=== PATIENT | female | born 1950 | race Caucasian/White ===

== ENCOUNTER 2016-10-28 14:50 | Outpatient (RCR) | payer OTHER, MEDICARE ==
[~2016-10-28 14:50] MED LIST: ACHD5005 PO; ALPR.25T PO; ASP81TEC PO; FRNCD3C PO; LISI20TA PO; NAPR-243 PO; OMEP20CA6 PO; OXYC-12 PO; PNT40TEC PO; SIMV20TA3 PO; SMTR50T PO; TPR25T PO; TRIA1TAB3 PO
== END 2016-10-29 13:30 | disposition home or self-care (01) ==
PROVIDERS: ATTEND Orthopaedic Surgery
DX: Z47.1 Aftercare following joint replacement surgery (principal); Z96.651 Presence of right artificial knee joint

== ENCOUNTER → 2017-02-25 | Outpatient (CLI) | payer MEDICARE, OTHER ==
[2017-02-25 09:51] LABS: ALANINE AMINOTRANSFERASE 21 U/L (0-55); ALBUMIN 3.9 GM/DL (3.2-4.5); ANION GAP 9 MMOL/L (5-14); ASPARTATE AMINO TRANSFERASE 17 U/L (5-34); BILIRUBIN,TOTAL 0.5 MG/DL (0.1-1.0); BLOOD UREA NITROGEN 14 MG/DL (7-18); BUN/CREATININE RATIO 19 (0-20); CALCIUM 8.9 MG/DL (8.5-10.1); CARBON DIOXIDE 26 MMOL/L (21-32); CHLORIDE 108 MMOL/L (98-107); CHOLESTEROL 190 MG/DL (< 200); CREATININE SERUM 0.73 MG/DL (0.60-1.30); DIRECT LDL 118 MG/DL (1-129); GFR ESTIMATED > 60; GLUCOSE 91 MG/DL (70-105); HEMOLYSIS 7 (-100-29); ICTERUS 0.8 (-100-1.9); LIPEMIA 1 (-100-49); POTASSIUM 3.7 MMOL/L (3.6-5.0); SODIUM 143 MMOL/L (135-145); TOTAL PROTEIN 6.2 GM/DL (6.4-8.2); TRIGLYCERIDES 102 MG/DL (<150); VLDL CHOLESTEROL 20 MG/DL (5-40)
[2017-02-25 10:11] LABS: THYROID STIMULATING HORMONE 1.75 UIU/ML (0.35-4.94)
== END ==
LOC: LAB 08:58
PROVIDERS: ATTEND Internal Medicine
DX: E78.1 Pure hyperglyceridemia (principal); E78.00 Pure hypercholesterolemia, unspecified; R73.9 Hyperglycemia, unspecified
CPT/HCPCS: 36415; 80053; 80061; 83036; 84443

== ENCOUNTER → 2017-03-12 | Outpatient (CLI) | payer MEDICARE, OTHER ==
--- NOTE | 2017-03-12 15:20 | Diagnostic Imaging Report ---
EXAMINATION: Right breast ultrasound. INDICATION: Asymmetry in the central aspect of the right CC projection, probably inferiorly located in the right breast. TECHNIQUE: All four quadrants and the retroareolar region were examined on this study. FINDINGS: There are scattered benign-appearing calcifications seen correlating with mammographic findings noted. When compared to ultrasound from 08/08/2006, the previously seen lymph node at the 7:00 zone has resolved. The lymph node was felt to correlate with the asymmetry; however, the discrepancy persisting on mammography and resolving on ultrasound is suggestive of other etiology of the asymmetry. IMPRESSION: Essentially negative ultrasound. The persistent asymmetry in the central aspect of the right CC projection with suggestive correlate inferiorly in the inferior aspect of the right breast is of uncertain etiology. MRI evaluation is recommended to rule out an underlying lesion. If the MRI could not be obtained, then six-month followup mammogram would be recommended. ACR BI-RADS Category 3: Probably benign findings. Result letter will be mailed to the patient. Note: At least 10% of breast cancer is not imaged by mammography. Dictated by: Dictated on workstation # [id number]
--- NOTE | 2017-03-12 15:25 | Diagnostic Imaging Report ---
EXAMINATION: Bilateral diagnostic mammogram with tomosynthesis. The current study was also evaluated with a Computer Aided Detection (CAD) system. INDICATION: Followup focal asymmetry in the central lower aspect of the right breast. COMPARISON: 04/12/2016. FINDINGS: There is a focal asymmetry measuring about 1 cm in the central lower aspect of the right breast. This is confirmed with persistent oval asymmetry seen on the tomographic images in the CC projection, image 10 of 67, and appears to correlate with an asymmetry that is less prominent on a tomographic image in the right MLO view, image 13 of 74. This is less prominent on the true lateral view and is not significantly apparent. Otherwise, the breasts appears to have scattered fibroglandular densities and benign-appearing calcifications. IMPRESSION: Persistent focal asymmetry in the lower aspect of the right breast. An ultrasound evaluation is pending. ACR BI-RADS Category 0: Incomplete. (Needs additional imaging evaluation). Result letter will be mailed to the patient. Note: At least 10% of breast cancer is not imaged by mammography. Dictated by: Dictated on workstation # [id number]
== END ==
LOC: RAD 13:50
PROVIDERS: ATTEND Internal Medicine
DX: N64.89 Other specified disorders of breast (principal)
CPT/HCPCS: 76641; 77066

== ENCOUNTER → 2017-04-01 | Outpatient (CLI) | payer MEDICARE, OTHER ==
[~2017-04-01] MED LIST changes: +GADOBUTROL 7.5 MMOL/7.5 ML (GADAVIST) VIAL IV ONE
[2017-04-01 08:10] LABS: BLOOD UREA NITROGEN 16 MG/DL (7-18); BUN/CREATININE RATIO 20; GFR ESTIMATED > 60
== END ==
LOC: RAD 07:27
PROVIDERS: ATTEND Surgery
DX: R92.8 Other abnormal and inconclusive findings on diagnostic imaging of breast (principal)
CPT/HCPCS: 36415; 77059; 82565; 84520

== ENCOUNTER 2017-05-20 09:46 | Outpatient (RCR) | payer OTHER, MEDICARE ==
[~2017-05-20 09:46] MED LIST changes: -GADOBUTROL 7.5 MMOL/7.5 ML (GADAVIST) VIAL IV ONE
== END 2017-05-21 | disposition home or self-care (01) ==
PROVIDERS: ATTEND Nurse Practitioner
DX: M51.37 Other intervertebral disc degeneration, lumbosacral region; M54.16 Radiculopathy, lumbar region

== ENCOUNTER 2017-05-26 13:01 | Outpatient (RCR) | payer OTHER, MEDICARE | END 2017-05-31 | disposition home or self-care (01) | PROVIDERS: ATTEND Nurse Practitioner | DX: M51.37 Other intervertebral disc degeneration, lumbosacral region; M54.16 Radiculopathy, lumbar region ==

== ENCOUNTER → 2017-08-26 | Outpatient (CLI) | payer MEDICARE, OTHER ==
[2017-08-26 08:38] LABS: BASOPHILS % (AUTO) 0 % (0-10); EOSINOPHILS # (AUTO) 0.5 10^3/uL (0.0-0.3); EOSINOPHILS % (AUTO) 12 % (0-10); LYMPHOCYTES # (AUTO) 1.3 X 10^3 (1.0-4.0); LYMPHOCYTES % (AUTO) 29 % (12-44); MEAN CORPUSCULAR HEMOGLOBIN 28 PG (25-34); MEAN CORPUSCULAR HGB CONC 33 G/DL (32-36); MEAN CORPUSCULAR VOLUME 85 FL (80-99); MEAN PLATELET VOLUME 9.3 FL (7.4-10.4); MONOCYTES # (AUTO) 0.3 X 10^3 (0.0-1.0); MONOCYTES % (AUTO) 6 % (0-12); NEUTROPHILS # (AUTO) 2.3 X 10^3 (1.8-7.8); NEUTROPHILS % (AUTO) 53 % (42-75); PLATELET COUNT 272 10^3/uL (130-400); RED BLOOD COUNT 4.85 10^6/uL (4.35-5.85); RED CELL DISTRIBUTION WIDTH 13.9 % (10.0-14.5); WHITE BLOOD COUNT 4.5 10^3/uL (4.3-11.0)
[2017-08-26 08:56] LABS: ALANINE AMINOTRANSFERASE 19 U/L (0-55); ALBUMIN 4.2 GM/DL (3.2-4.5); ANION GAP 11 MMOL/L (5-14); ASPARTATE AMINO TRANSFERASE 20 U/L (5-34); BILIRUBIN,TOTAL 0.6 MG/DL (0.1-1.0); BLOOD UREA NITROGEN 16 MG/DL (7-18); BUN/CREATININE RATIO 19; CALCIUM 9.2 MG/DL (8.5-10.1); CARBON DIOXIDE 26 MMOL/L (21-32); CHLORIDE 107 MMOL/L (98-107); CHOLESTEROL 229 MG/DL (< 200); CREATININE SERUM 0.86 MG/DL (0.60-1.30); DIRECT LDL 150 MG/DL (1-129); GFR ESTIMATED > 60; GLUCOSE 96 MG/DL (70-105); POTASSIUM 4.4 MMOL/L (3.6-5.0); SODIUM 144 MMOL/L (135-145); TOTAL PROTEIN 6.6 GM/DL (6.4-8.2); TRIGLYCERIDES 156 MG/DL (<150); VLDL CHOLESTEROL 31 MG/DL (5-40)
== END ==
LOC: LAB 08:25
PROVIDERS: ATTEND Internal Medicine
DX: Z00.00 Encounter for general adult medical examination without abnormal findings (principal); E78.1 Pure hyperglyceridemia; R73.9 Hyperglycemia, unspecified; E78.00 Pure hypercholesterolemia, unspecified
CPT/HCPCS: 36415; 80053; 80061; 83036; 85025

== ENCOUNTER 2017-09-04 08:59 | Outpatient (RCR) | payer OTHER, MEDICARE | END 2017-09-08 | disposition home or self-care (01) | PROVIDERS: ATTEND Nurse Practitioner | DX: M51.37 Other intervertebral disc degeneration, lumbosacral region (principal); M54.16 Radiculopathy, lumbar region ==

== ENCOUNTER → 2017-10-27 | Outpatient (CLI) | payer MEDICARE, OTHER ==
--- NOTE | 2017-10-27 13:06 | Diagnostic Imaging Report ---
INDICATION: Six-month followup right breast density. COMPARISON: 03/12/2017 and 08/08/2016. TECHNIQUE: Digital diagnostic mammography was performed of the right breast with a Computer Aided Detection (CAD) system. FINDINGS: The small asymmetric density in the central right breast, best seen on the CC view, is stable. No new mass or malignant appearing microcalcifications are seen. There are benign calcifications throughout the right breast. The right axilla is unremarkable. IMPRESSION: Stable right mammogram. A followup right breast mammogram in 6 months is recommended to confirm stability of the focal density in the right breast. ACR BI-RADS Category 3: Probably benign findings. Result letter will be mailed to the patient. Note: At least 10% of breast cancer is not imaged by mammography. Dictated by: Dictated on workstation # [id number]
== END ==
LOC: RAD 12:30
PROVIDERS: ATTEND Internal Medicine
DX: R92.0 Mammographic microcalcification found on diagnostic imaging of breast (principal)

== ENCOUNTER → 2017-12-09 | Outpatient (RCR) | payer MEDICARE, OTHER | END | disposition home or self-care (01) | PROVIDERS: ATTEND Nurse Practitioner | DX: M51.37 Other intervertebral disc degeneration, lumbosacral region (principal); M54.16 Radiculopathy, lumbar region ==

== ENCOUNTER 2018-03-11 08:43 | Outpatient (RCR) | payer MEDICARE, OTHER | END 2018-03-17 | disposition home or self-care (01) | PROVIDERS: ATTEND Nurse Practitioner | DX: M51.37 Other intervertebral disc degeneration, lumbosacral region (principal); M54.16 Radiculopathy, lumbar region ==

== ENCOUNTER → 2018-03-26 | Outpatient (CLI) | payer MEDICARE, OTHER ==
--- NOTE | 2018-03-26 19:15 | Diagnostic Imaging Report ---
INDICATION: Digital mammogram bilateral diagnostic. This study was compared to the prior exams of 10/27/17, 03/12/17, 08/08/16, 02/12/16 and 12/22/14. At this time, there are no current complaints. The current study was also evaluated with a Computer Aided Detection (CAD) system. FINDINGS: The previous exams have noted a small asymmetric density in the central right breast on the craniocaudad view. That finding is again evident and does not appear to have changed significantly. I suspect that this is related to fibroglandular tissue. There are scattered fibroglandular densities in both breasts which could obscure a lesion. Overall, there has been no significant change. There is no primary or secondary sign of malignancy noted. Numerous macrocalcifications are again seen in both breasts. IMPRESSION: 1. There is no evidence for malignancy. 2. I would recommend that the patient have her annual screening mammogram on schedule in March of 2019. ACR BI-RADS Category 1: Negative. Result letter will be mailed to the patient. Note: At least 10% of breast cancer is not imaged by mammography. Dictated by: Dictated on workstation # [id number]
== END ==
LOC: RAD 12:50
PROVIDERS: ATTEND Internal Medicine
DX: R92.0 Mammographic microcalcification found on diagnostic imaging of breast (principal)
CPT/HCPCS: 77066

== ENCOUNTER → 2019-04-26 | Outpatient (CLI) | payer MEDICARE, OTHER ==
--- NOTE | 2019-04-26 22:29 | Diagnostic Imaging Report ---
INDICATION: Screening. The current study was also evaluated with a Computer Aided Detection (CAD) system. 3-D Tomographic imaging was also performed. Comparison is made with prior examination 03/26/2018, 10/27/2017, 03/12/2017 and 08/08/2016. FINDINGS: There are scattered fibroglandular densities bilaterally. There are vascular and benign-type calcifications. There is no dominant mass, spiculated lesion or suspicious calcification identified. Skin, nipples and axillae are unremarkable. IMPRESSION: ACR BI-RADS Category 2: Benign findings. Result letter will be mailed to the patient. Note: At least 10% of breast cancer is not imaged by mammography. Dictated by: Dictated on workstation # [id number]
== END ==
LOC: RAD 09:32
PROVIDERS: ATTEND Internal Medicine
DX: Z12.31 Encounter for screening mammogram for malignant neoplasm of breast (principal)
CPT/HCPCS: 77067

== ENCOUNTER 2019-07-22 12:53 | Outpatient (CLI) | payer MEDICARE, OTHER | END 2019-07-22 13:45 | disposition home or self-care (01) | LOC: SLEEP 12:53 | PROVIDERS: ATTEND Nurse Practitioner | DX: G47.33 Obstructive sleep apnea (adult) (pediatric) (principal) ==

== ENCOUNTER → 2020-12-19 | Outpatient (CLI) | payer MEDICARE, OTHER ==
--- NOTE | 2020-12-19 12:37 | Diagnostic Imaging Report ---
INDICATION: Routine screening. COMPARISON: 04/26/2019 and 03/26/2018. TECHNIQUE: 2D and 3D bilateral screening mammography was performed with CAD. FINDINGS: Scattered fibroglandular densities are identified bilaterally. There is a slightly irregular density in the inferior central right breast. Additional views are recommended. The left breast is unremarkable. There are scattered benign calcifications in both breasts. No malignant appearing microcalcifications are seen. The axillae are unremarkable. IMPRESSION: Right breast density. Additional views are recommended for further evaluation. ACR BI-RADS Category 0: Incomplete. (Needs additional imaging evaluation). Result letter will be mailed to the patient. Note: At least 10% of breast cancer is not imaged by mammography. Dictated by: Dictated on workstation # [id number]
== END ==
LOC: RAD 10:37
PROVIDERS: ATTEND Internal Medicine
DX: Z12.31 Encounter for screening mammogram for malignant neoplasm of breast (principal)
CPT/HCPCS: 77063; 77067

== ENCOUNTER → 2021-01-01 | Outpatient (CLI) | payer MEDICARE, OTHER ==
--- NOTE | 2021-01-01 14:20 | Diagnostic Imaging Report ---
EXAMINATION: Ultrasound right breast limited. INDICATION: Abnormal mammogram. FINDINGS: The screening mammogram performed on 12/19/2020 suggested a slightly irregular density in the inferior central right breast on the MLO view. The diagnostic mammogram performed prior this study failed to show any conclusive evidence for malignancy. On this study in the 6 o'clock position of the breast approximately 4 cm from the nipple, there is a 1.3 x 0.4 x 0.3 cm avascular poorly defined hypoechoic area. This finding seems quite similar to the previous right breast ultrasound exam of 02/22/2016. Consequently, I suspect this finding is more likely due to fibroglandular tissue than to malignancy. Even so, I would recommend that a short-term (6 month) followup mammogram and ultrasound of the right breast be obtained for continued evaluation. IMPRESSION: 1. There is no evidence for malignancy. Recommendations as above. 2. These results will be discussed with Dr. Tasia Briggs. ACR BI-RADS Category 3: Probably benign findings. Dictated on workstation # [id number]
--- NOTE | 2021-01-01 19:44 | Diagnostic Imaging Report ---
EXAM: Unilateral diagnostic right mammogram INDICATION: Abnormal screening mammogram The screening mammogram performed on 12/19/2020 suggested a slightly irregular density in the inferior central right breast. This was best visualized on the MLO view. The compression views of this area in the true lateral projection suggests there is still a nodular density in this region. This finding is difficult to identify with certainty on the craniocaudad view and the tomographic images also failed to show any sign of a discrete abnormality. Even so, I would recommend that ultrasound be performed for further study. IMPRESSION: Ultrasound would be recommended for further evaluation of the right breast. ACR category 0 ACR BI-RADS Category 0: Incomplete. (Needs additional imaging evaluation). Result letter will be mailed to the patient. Note: At least 10% of breast cancer is not imaged by mammography. Dictated by: Dictated on workstation # [id number]
== END ==
LOC: RAD 12:45
PROVIDERS: ATTEND Internal Medicine
DX: N63.10 Unspecified lump in the right breast, unspecified quadrant (principal)
CPT/HCPCS: 76642; 77065; G0279

== ENCOUNTER 2021-04-17 05:28 | Outpatient (RCR) | payer MEDICARE, OTHER ==
[~2021-04-17] VITALS: Ht 152.4 cm; Wt 71.8 kg
[~2021-04-17 05:28] MED LIST changes: +AMLO-250 PO; +ATOR20TA66 PO; +ESOM20CA37 PO; +FLUT15.845 NS
[2021-04-19] MEDS ORDERED: PANT40TA2 PO (12:28)
== END 2021-04-17 08:41 | disposition home or self-care (01) ==
LOC: PREOP 05:28
PROVIDERS: ATTEND Surgery
DX: Z01.818 Encounter for other preprocedural examination (principal); Z12.11 Encounter for screening for malignant neoplasm of colon; K21.9 Gastro-esophageal reflux disease without esophagitis; Z20.822 Contact with and (suspected) exposure to COVID-19
CPT/HCPCS: 87635

== ENCOUNTER 2021-04-19 10:39 | Day surgery (SDC) | payer MEDICARE, OTHER ==
[2021-04-19] VITALS (8 sets, daily range): BP systolic 94–127; BP diastolic 50–83
[~2021-04-19] VITALS: Ht 152.4 cm; Wt 71.8 kg
[2021-04-19] MEDS ORDERED: LACTATED RINGERS 1,000 ML IV STA (10:51)
[2021-04-19] MEDS ORDERED: MIDAZOLAM 2 MG/2 ML (VERSED) VIAL ONE (11:00)
[2021-04-19] MEDS ORDERED: HURRICAINE EXT TUBE (BENZOCAINE) XX PRN (11:00)
[2021-04-19] MEDS ORDERED: PROPOFOL INJECTION 50 ML IV ONE (11:00)
--- NOTE | 2021-04-19 11:51 | Progress Note-Pre Operative ---
Pre-Operative Progress Note H&P Reviewed The H&P was reviewed, patient examined and no changes noted. Date Seen by Provider: Apr 19, 2021 Time Seen by Provider: 11:50 Date H&P Reviewed: Apr 19, 2021 Time H&P Reviewed: 11:51 Pre-Operative Diagnosis: gerd, screening colon DULCE CANO DO Apr 19, 2021 11:51
--- NOTE | 2021-04-19 12:27 | Progress Note-Post Operative ---
Post-Operative Progess Note Surgeon (s)/Circulation Director (s) Surgeon DULCE CANO DO Circulation Director: na Pre-Operative Diagnosis gerd, screening colon Post-Operative Diagnosis hiatal hernia, colon polyps and diverticulosis Procedure & Operative Findings Date of Procedure 04/19/21 Procedure Performed/Findings EGD c biopsies, and colonoscopy c hot biopsy polypectomy x4. Anesthesia Type per business unit manager Estimated Blood Loss Estimated blood loss (mL): scant Specimens/Packing Specimens Removed antrum, GE, and colon polyps. DULCE CANO DO Apr 19, 2021 12:27
[2021-04-19] MEDS ORDERED: PANT40TA2 PO (12:28)
--- NOTE | 2021-04-19 12:29 | Discharge Inst-Simple/Standard ---
Discharge Inst-Standard Discharge Medications New, Converted or Re-Newed RX: Transmitted to Pharmacy Patient Instructions/Follow Up Plan of Care/Instructions/FU: 2 weeks Anahi Activity as Tolerated: Yes Discharge Diet: Regular Diet (high fiber) DULCE CANO DO Apr 19, 2021 12:29
--- NOTE | 2021-04-19 12:35 | Anesthesia-General Post-Op ---
MAC Patient Condition Mental Status/LOC: Same as Preop Cardiovascular: Satisfactory Nausea/Vomiting: Absent Respiratory: Satisfactory Pain: Controlled Complications: Absent Post Op Complications Complications None Follow Up Care/Instructions Patient Instructions None needed. Anesthesiology Discharge Order Discharge Order Patient is doing well, no complaints, stable vital signs, no apparent adverse anesthesia problems. No complications reported per nursing. VANITA DAVILA CRNA Apr 19, 2021 12:35
--- NOTE | 2021-04-19 17:54 | OPERATIVE REPORT ---
DATE OF SERVICE: 04/19/2021 PREOPERATIVE DIAGNOSES: Gastroesophageal reflux disease, and screening colonoscopy. POSTOPERATIVE DIAGNOSES: Hiatal hernia, colon polyps, and diverticulosis. PROCEDURE: EGD with biopsies and colonoscopy with hot biopsy polypectomy x4. SURGEON: Michael Christian DO ANESTHESIA: Per ROAD GRADER OPERATOR. ESTIMATED BLOOD LOSS: Scant. COMPLICATIONS: None. INDICATIONS: The patient is a 70-year-old female needing a screening colonoscopy. She also has worsening reflux. She understands risks and benefits of procedure and wished to proceed. Consent was signed in the chart. DESCRIPTION OF PROCEDURE: The patient was taken to the endoscopy suite, placed in left lateral recumbent position. Timeout was performed. Scope was inserted in mouth, down the esophagus, stomach and into the duodenum without difficulty. No polyps, masses or ulcerations within the duodenum. Scope was slowly retracted back into the stomach where it was further insufflated. No polyps, masses or ulcerations. Scope was retroflexed noting a moderate sized hiatal hernia. Scope was returned to its normal position. Biopsy of the antrum was obtained. Scope was then slowly retracted back to the GE junction. No polyps, masses or ulcerations. Maybe some slight reflux esophagitis. Had no polyps, masses or ulcerations. Biopsy of the GE junction was obtained. Scope was then slowly retracted back until completely removed. Digital rectal exam was performed. There were no palpable polyps, masses or ulcerations. Scope was inserted in the rectum and advanced all the way to cecum with minimal difficulty. Prep was adequate. Scope was then slowly retracted back. There were no polyps, masses or ulcerations within the cecum. Ascending and transverse colon. Within the descending colon, two small polyps were present, which hot biopsy polypectomy was performed. Scope was then continuously slowly retracted back in the sigmoid colon, which had minimal diverticulosis and there were 2 polyps present, which hot biopsy polypectomies were performed. Scope was then continuously slowly retracted back into the rectum where it was also retroflexed noting no other pathology. Scope was returned to its normal position, slowly withdrawn until completely removed. The patient tolerated procedure well without any complications. She was taken to recovery room in stable condition. RECOMMENDATIONS: The patient will be started on Protonix 40 mg daily, and stop omeprazole. See if this causes any improvement. We will have her follow up in two to three weeks for reevaluation and go over pathology of her colonoscopy and biopsies. To the patient we would recommend repeat colonoscopy in 5 years if benefits outweigh the risks. Job ID: [id number] DocumentID: [id number] Dictated Date: 04/19/2021 12:32:43 Figure Model Date: 04/19/2021 17:52:47 Dictated By: DO KARTHIK GUZMAN
== END 2021-04-19 13:10 | disposition home or self-care (01) ==
LOC: ENDO 10:39
PROVIDERS: ATTEND Surgery
DX: Z12.11 Encounter for screening for malignant neoplasm of colon (principal); D12.5 Benign neoplasm of sigmoid colon; K63.5 Polyp of colon; K21.9 Gastro-esophageal reflux disease without esophagitis; K31.89 Other diseases of stomach and duodenum; K44.9 Diaphragmatic hernia without obstruction or gangrene; K57.30 Diverticulosis of large intestine without perforation or abscess without bleeding; I10 Essential (primary) hypertension; E78.5 Hyperlipidemia, unspecified; G47.33 Obstructive sleep apnea (adult) (pediatric); G43.909 Migraine, unspecified, not intractable, without status migrainosus; M19.90 Unspecified osteoarthritis, unspecified site; J30.9 Allergic rhinitis, unspecified; F17.210 Nicotine dependence, cigarettes, uncomplicated; Z79.899 Other long term (current) drug therapy; Z99.89 Dependence on other enabling machines and devices; Z90.710 Acquired absence of both cervix and uterus; Z80.9 Family history of malignant neoplasm, unspecified

== ENCOUNTER → 2021-05-17 | Outpatient (CLI) | payer MEDICARE, OTHER ==
[~2021-05-17] MED LIST changes: +PANT40TA2 PO
--- NOTE | 2021-05-17 10:26 | Diagnostic Imaging Report ---
PROCEDURE: US Gallbladder. TECHNIQUE: Multiple real-time grayscale images were obtained over the right upper quadrant in various projections. INDICATION: Epigastric pain. The liver measures approximately 11 cm in length. Portal vein is patent and shows normal direction of flow. There is a circumscribed hypoechoic mass left lobe measuring approximately 16 mm x 10 mm. No internal vascularity is identified. This could represent a cyst. No other liver lesions are identified. Gallbladder is without stones or sludge. There is no wall thickening or biliary ductal dilatation. Pancreas is unremarkable. Aorta is nonaneurysmal. IVC is patent. Right kidney without calculi or hydronephrosis. There is no ascites. IMPRESSION: 1. No evidence of cholelithiasis or acute cholecystitis. 2. Circumscribed hypoechoic lesion left lobe of the liver. No internal vascularity is present. This may represent a cyst. The study is otherwise unremarkable. Dictated by: Dictated on workstation # [id number]
== END ==
LOC: RAD 07:50
PROVIDERS: ATTEND Surgery
DX: K76.9 Liver disease, unspecified (principal)
CPT/HCPCS: 76705

== ENCOUNTER → 2021-05-31 | Outpatient (CLI) | payer MEDICARE, OTHER ==
[~2021-05-31] MED LIST changes: +CATHETER FLUSH 10 ML SYR IV PRN
--- NOTE | 2021-05-31 16:20 | Diagnostic Imaging Report ---
INDICATION: Epigastric pain. EXAMINATION: HIDA scan, 05/31/2021. FINDINGS: After uneventful administration of 4 mCi of mebrofenin intravenously, subsequent imaging was performed with prompt homogeneous uptake seen throughout the liver. Gallbladder and small bowel loops seen within less than 60 minutes. Subsequently administration of 8 ounces of Ensure administered orally with continued imaging performed. Ejection fraction calculated at 79.7% IMPRESSION: 1. No obstructive process. 2. Normal ejection fraction. Dictated by: Dictated on workstation # [id number]
== END ==
LOC: CARD 11:36
PROVIDERS: ATTEND Surgery
DX: R10.13 Epigastric pain (principal)
CPT/HCPCS: 78227; A9537

== ENCOUNTER 2021-06-25 05:48 | Outpatient (CLI) | payer MEDICARE ==
[~2021-06-25] VITALS: Ht 152.4 cm; Wt 70.3 kg
[~2021-06-25 05:48] MED LIST changes: -CATHETER FLUSH 10 ML SYR IV PRN
[2021-06-25] MEDS ORDERED: CETI10TA49 PO (14:06)
[2021-06-25] MEDS ORDERED: PANT40TA52 PO (14:06)
[2021-06-28] MEDS ORDERED: ACHD5005 PO (09:35)
[2021-06-28] MEDS ORDERED: DOCU-143 PO (09:35)
== END 2021-06-25 14:26 | disposition home or self-care (01) ==
LOC: PREOP 05:48
PROVIDERS: ATTEND Surgery
DX: Z01.818 Encounter for other preprocedural examination (principal)

== ENCOUNTER 2021-06-28 07:25 | Day surgery (SDC) | payer MEDICARE, OTHER ==
[2021-06-28] VITALS (12 sets, daily range): BP systolic 108–158; BP diastolic 57–81
[~2021-06-28] VITALS: Ht 152.4 cm; Wt 70.3 kg
[~2021-06-28 07:25] MED LIST changes: +CETI10TA49 PO; +PANT40TA52 PO
[2021-06-28] MEDS: LACTATED RINGERS 1,000 ML IV PRN ×2 (07:45→09:16)
--- NOTE | 2021-06-28 07:58 | Progress Note-Pre Operative ---
Pre-Operative Progress Note H&P Reviewed The H&P was reviewed, patient examined and no changes noted. Date Seen by Provider: Jun 28, 2021 Time Seen by Provider: 07:57 Date H&P Reviewed: Jun 28, 2021 Time H&P Reviewed: 07:57 Pre-Operative Diagnosis: ruq abd pain, biliary dyskinesia DULCE CANO DO Jun 28, 2021 07:58
[2021-06-28] MEDS ORDERED: ceFAZolin INJECTION 1,000 MG in WATER (STERILE) FOR INJECTION 10 ML IV ONE (08:00)
[2021-06-28] MEDS ORDERED: proPOfol 200 MG/20 ML (DIPRIVAN) VIAL IV ONE (08:14)
[2021-06-28] MEDS ORDERED: LIDOCAINE PF 2% 5 ML (XYLOCAINE) VIAL ONE (08:14)
[2021-06-28] MEDS ORDERED: fentaNYL INJ 100 MCG/2 ML AMP ONE (08:14)
[2021-06-28] MEDS ORDERED: ONDANSETRON 4 MG/2 ML (SDV) Z0FRAN ONE (08:14)
[2021-06-28] MEDS ORDERED: SEVOFLURANE (ULTANE) 15 ML INHAL SOLN ONE (08:14)
[2021-06-28] MEDS ORDERED: ROCURONIUM 10 MG/ML 5 ML SYRINGE IV ONE (08:14)
[2021-06-28] MEDS ORDERED: LIDOCAINE/EPI 1%-1:100,000 (XYLOCAINE) 20ML ONE (08:44)
[2021-06-28] MEDS ORDERED: MIDAZOLAM 2 MG/2 ML (VERSED) VIAL ONE (08:50)
--- NOTE | 2021-06-28 09:34 | Progress Note-Post Operative ---
Post-Operative Progess Note Surgeon (s)/Automatic Pad Making Machine Operator (s) Surgeon DULCE CANO DO Automatic Pad Making Machine Operator: Dr. Reno to assist in retraction dissectio and closure. Pre-Operative Diagnosis ruq abd pain, biliary dyskinesia Post-Operative Diagnosis same Procedure & Operative Findings Date of Procedure 06/28/21 Procedure Performed/Findings PROCEDURE: Laparoscopic cholecystectomy with intraoperative cholangiogram. COMPLICATIONS: None. PROCEDURE: The patient was taken to the operating suite and was prepped and draped in sterile fashion. A surgical pause was performed. Just superior to the umbilicus, a 12 mm incision was made. Dissection was taken down to the fascia, which was then scored and grasped with a Kaylie and the abdomen was then entered. A 0 Vicryl suture was placed in a [id number] fashion and a Kaiser trocar was placed and secured. Pneumoperitoneum was achieved. A 5mm trochar place in the subxyphoid and 2 in the right upper quadrant. The gallbladder was then grasped and elevated. The cystic duct, and cystic artery were then dissected out. Clip was placed on the distal portion of the cystic duct which was then partially transected. An arrow catheter was inserted into the duct. The cholangiogram was then performed. No filing defects and contrast made its way into the duodenum. Catheter removed. Clips were placed on proximal portion of the cystic duct and then the duct was then transected. Clips were placed along the proximal and distal portion of the cystic artery which was then transected. Hook cautery was used to dissect the gallbladder from the gallbladder fossa achieving hemostasis. The gallbladder was placed in an Endobag and removed through the 12 mm trocar site. The abdomen was then reinspected. Copious amounts of irrigation were used to irrigate the abdomen and there were no signs of active bleeding. Hemostasis had been achieved. The 12 mm fascial defect was then closed with 0 Vicryl suture that had been placed in a jxeuym-qa-twurr fashion. The abdomen was then desufflated, the trocars were removed. The abdomen was then washed and dried. The skin was then closed using 4-0 Monocryl in a subcuticular fashion. The abdomen was washed and dried and Skin Affix was place over incisions. Patient tolerated the procedure well without any complications and was taken to the recovery room in stable condition. Anesthesia Type general Estimated Blood Loss Estimated blood loss (mL): minimal Specimens/Packing Specimens Removed gallbladder DULCE CANO DO Jun 28, 2021 09:34
[2021-06-28] MEDS ORDERED: ACHD5005 PO (09:35)
[2021-06-28] MEDS ORDERED: DOCU-143 PO (09:35)
--- NOTE | 2021-06-28 09:38 | Discharge Inst-Simple/Standard ---
Discharge Inst-Standard Patient Instructions/Follow Up Plan of Care/Instructions/FU: 2 weeks Anahi Activity as Tolerated: No Discharge Diet: Regular Diet Other Inst to Patient Follow up Appt: Make appointment for 2 weeks. Instructions: No lifting greater than 10 pounds. No strenuous activity. May shower in 24 hours, no tub bath or soaking. Use incentive spirometer at home as directed. No Smoking Skin/Wound Care: You have special glue over incision, it will fall off on it's own. Symptoms to Report: Appetite Changes, Extremity Discoloration, Numbness/Tingling, Swelling Increased, Bleeding Excessive, Eyesight Changes, Pain Increased, Urine Color Change, Constipation(Persistent), Fever over 101 degree F, Pain/Pressure in chest, Urinating Difficulty, Cough Up/Vomit Blood, Heart Beat Irreg/Pounding, Pain/Pressure in jaw, Vaginal Bleeding Increase, Cramps in feet or legs, Lightheadedness, Pain/Pressure in shoulder, Diarrhea(Persistent), Memory Changes Suddenly, Questions/Concerns, Weight gain consecutive days, Dizziness/Fainting, Nausea/Vomiting, Shortness of Breath, Weight gain over 2 pounds. If eyes or skin turn yellow notify physician. If questions or concerns contact your physician Or seek help at emergency department. DULCE CANO DO Jun 28, 2021 09:38
--- NOTE | 2021-06-28 09:48 | Anesthesia-General Post-Op ---
General Patient Condition Mental Status/LOC: Same as Preop Cardiovascular: Satisfactory Nausea/Vomiting: Absent Respiratory: Satisfactory Pain: Controlled Complications: Absent Post Op Complications Complications None Follow Up Care/Instructions Patient Instructions None needed. Anesthesia/Patient Condition Patient Condition Patient is doing well, no complaints, stable vital signs, no apparent adverse anesthesia problems. No complications reported per nursing. ZI LANDRY CRNA Jun 28, 2021 09:48
[2021-06-28] MEDS ORDERED: morphine INJ 10 MG/ML 1ML (SYR OR VIAL) IVP ONE (10:00)
[2021-06-28] MEDS ORDERED: MEPERIDINE (DEMEROL) INJ 50 MG/ML IVP ONE (10:00)
[2021-06-28] MEDS ORDERED: HYDROmorphone 2 MG/ML VIAL (DILAUDID) IV ONE (10:00)
[2021-06-28] MEDS ORDERED: PROMETHAZINE INJ 25 MG/ML (PHENERGAN) AMP IVP ONE (10:00)
[2021-06-28] MEDS ORDERED: fentaNYL INJ 100 MCG/2 ML AMP IVP ONE (10:00)
--- NOTE | 2021-06-28 10:03 | Diagnostic Imaging Report ---
EXAMINATION: Fluoroscopy up to 1 hour. INDICATION: Abdominal pain. Fluoroscopic assistance was provided for Dr. Christian during his laparoscopic cholecystectomy. 13.1 seconds of fluoroscopy time was utilized. 27 spot films of the right upper quadrant were obtained. There are laparoscopic devices in place. The common bile duct has been opacified via a cystic duct catheter. The duct does not seem to be significantly dilated, and there is no definite defect within the duct to indicate a retained stone. There is contrast extending into the small bowel. IMPRESSION: Fluoroscopic assistance was provided for Dr. Christian. Dictated by: Dictated on workstation # [id number]
[2021-06-28] MEDS: ONDANSETRON 4 MG/2 ML (SDV) Z0FRAN IVP PRN ×2 (10:28→10:50)
[2021-06-28] MEDS ORDERED: HYDROcodone/APAP 5 MG/325 MG (LORTAB) TAB PO ONE (11:15)
[2021-06-28] MEDS ORDERED: HYDROcodone/APAP 5 MG/325 MG (LORTAB) TAB ONE (11:52)
== END 2021-06-28 12:30 | disposition home or self-care (01) ==
LOC: SDC 07:25
PROVIDERS: ATTEND Surgery
DX: K81.1 Chronic cholecystitis (principal); K82.8 Other specified diseases of gallbladder; K21.9 Gastro-esophageal reflux disease without esophagitis; I10 Essential (primary) hypertension; E78.5 Hyperlipidemia, unspecified; G47.33 Obstructive sleep apnea (adult) (pediatric); Z99.89 Dependence on other enabling machines and devices; Z96.651 Presence of right artificial knee joint; Z79.899 Other long term (current) drug therapy; Z11.2 Encounter for screening for other bacterial diseases
CPT/HCPCS: 76000; 87081; 94664

== ENCOUNTER → 2021-07-25 | Outpatient (CLI) | payer MEDICARE, OTHER ==
[~2021-07-25] MED LIST changes: +DOCU-143 PO
--- NOTE | 2021-07-25 13:18 | Diagnostic Imaging Report ---
INDICATION: 6 month followup right breast density. COMPARISON: Correlation is made with the prior mammograms from 12/19/2020 and 03/26/2018. TECHNIQUE: Unilateral right 2D and 3D diagnostic mammography was performed with CAD. FINDINGS: Scattered fibroglandular densities in the right breast are noted. There are multiple benign calcifications. A slightly irregular density in the inferior right breast at approximately the 6 o'clock location is noted 8 to 9 cm from the nipple. This appears similar to the prior exam. No new mass is detected. No malignant-appearing microcalcifications are seen. The right axilla is unremarkable. IMPRESSION: Stable right mammogram. A followup right breast ultrasound is recommended to show continued stability and will be performed today. ACR BI-RADS Category 0: Incomplete. (Needs additional imaging evaluation). Result letter will be mailed to the patient. Note: At least 10% of breast cancer is not imaged by mammography. Dictated by: Dictated on workstation # [id number]
--- NOTE | 2021-07-25 14:51 | Diagnostic Imaging Report ---
Indication: Follow-up right breast density. Correlation is made with diagnostic mammogram earlier same day and right breast ultrasound from 01/01/2021. Sonographic interrogation inferior right breast was performed. There is a 6 mm x 7 mm x 3 mm hypoechoic nodule at the 6-7 o'clock location, 4 cm from the nipple. This appears less prominent on today's study. No new abnormality is seen. IMPRESSION: Stable to perhaps slight decrease in size of hypoechoic nodule at the 6-7 o'clock location of the right breast, 4 cm from the nipple. Additional six-month follow-up mammogram and ultrasound is recommended to show continued stability. Dictated by: Dictated on workstation # [id number]
== END ==
LOC: RAD 12:45
PROVIDERS: ATTEND Internal Medicine
DX: N63.10 Unspecified lump in the right breast, unspecified quadrant (principal)
CPT/HCPCS: 76642; 77065; G0279

== ENCOUNTER → 2022-02-20 | Outpatient (CLI) | payer MEDICARE, OTHER ==
--- NOTE | 2022-02-20 14:17 | Diagnostic Imaging Report ---
INDICATION: Six-month followup right breast density. COMPARISON: Correlation is made with the prior mammograms from 07/25/2021 and 12/19/2020 as well as 04/26/2019. TECHNIQUE: 2D and 3D bilateral diagnostic mammography was performed with CAD. FINDINGS: Scattered fibroglandular densities are again noted. The density noted in the 6 o'clock location of the right breast at mid to posterior depth appears to be fairly stable. No new mass is detected. No malignant-appearing microcalcifications are seen. There are scattered benign calcifications. The axillae are unremarkable. IMPRESSION: Stable right breast density. Further evaluation with ultrasound is recommended and will be performed today. ACR BI-RADS Category 0: Incomplete. (Needs additional imaging evaluation). Result letter will be mailed to the patient. Note: At least 10% of breast cancer is not imaged by mammography. Dictated by: Dictated on workstation # [id number]
--- NOTE | 2022-02-20 14:21 | Diagnostic Imaging Report ---
INDICATION: Right breast nodule. Patient presents for a 6 month followup. COMPARISON: Correlation is made with the diagnostic mammogram from earlier this same day as well as a prior right breast ultrasound from 07/25/2021. FINDINGS: Sonographic interrogation of the lower right breast was performed. The complex hypoechoic nodule at the 6-7 o'clock location of the right breast 4 cm from the nipple is again noted measuring 9 mm x 3 mm x 7 mm. This does show approximately 1 year of stability. No new mass is detected. IMPRESSION: Stable nodule at the 6-7 o'clock location of the right breast 4 cm from the nipple. This shows 1 year of stability. An additional 6 month followup is recommended. ACR BI-RADS Category 3: Probably benign findings. Dictated by: Dictated on workstation # [id number]
== END ==
LOC: RAD 12:45
PROVIDERS: ATTEND Internal Medicine
DX: N63.13 Unspecified lump in the right breast, lower outer quadrant (principal)
CPT/HCPCS: 76642; 77066; G0279; 77062

== ENCOUNTER → 2022-08-02 | Outpatient (CLI) | payer MEDICARE, OTHER ==
--- NOTE | 2022-08-02 15:32 | Diagnostic Imaging Report ---
Indication: Six-month follow-up right breast density. Correlation is made with prior right breast ultrasound 02/20/2022. Previously noted complex hypoechoic nodule at the 7:00 location of the right breast, 4 cm from the nipple is again noted measuring approximately 10 mm x 3 mm x 7 mm compared with 9 mm x 3 mm x 7 mm on prior. No new mass is detected. IMPRESSION: BI-RADS Category 3 Stable hypoechoic nodule at the 7:00 location of the right breast. This now shows 18 months of stability. One final six-month follow-up is recommended to show 24 months of stability. ACR BI-RADS Category 3: Probably benign findings. Result letter will be mailed to the patient. Note: At least 10% of breast cancer is not imaged by mammography. Dictated by: Dictated on workstation # [id number]
--- NOTE | 2022-08-02 15:33 | Diagnostic Imaging Report ---
Indication: Six-month follow-up right breast density. Correlation is made with prior mammograms from 02/20/2022 and 07/15/2021. Unilateral right 2-D and 3-D diagnostic mammography was performed with CAD. Scattered fibroglandular densities are identified in the right breast. The density in the inferior right breast at mid depth appears stable. No new mass is detected. There are scattered benign calcifications but no evidence of malignant-appearing microcalcifications. The right axilla is unremarkable. IMPRESSION: BI-RADS 0 Stable right breast density. Follow-up ultrasound is recommended and will be performed today. ACR BI-RADS Category 0: Incomplete. (Needs additional imaging evaluation). Result letter will be mailed to the patient. Note: At least 10% of breast cancer is not imaged by mammography. Dictated by: Dictated on workstation # [id number]
== END ==
LOC: RAD 13:00
PROVIDERS: ATTEND Internal Medicine
DX: N63.13 Unspecified lump in the right breast, lower outer quadrant (principal)
CPT/HCPCS: 76642; 77065; G0279

== ENCOUNTER → 2023-02-11 | Outpatient (CLI) | payer MEDICARE, OTHER ==
--- NOTE | 2023-02-11 15:37 | Diagnostic Imaging Report ---
INDICATION: Routine screening. Comparison is made with prior mammogram from 02/20/2022. 2-D and 3-D bilateral screening mammography was performed with CAD. The density in the inferior central right breast appears stable. No new mass or malignant-appearing microcalcifications are seen. There are scattered benign calcifications in both breasts. The axillae are unremarkable. IMPRESSION: No mammographic features suspicious for malignancy are identified. ACR BI-RADS Category 2: Benign findings. Result letter will be mailed to the patient. Note: At least 10% of breast cancer is not imaged by mammography. BI-RADS Category 2 Dictated by: Dictated on workstation # [id number]
== END ==
LOC: RAD 09:47
PROVIDERS: ATTEND Internal Medicine
DX: Z12.31 Encounter for screening mammogram for malignant neoplasm of breast (principal)
CPT/HCPCS: 77063; 77067